=== PATIENT | male | born 1955 | race Caucasian/White ===

== ENCOUNTER 2025-03-09 12:33 | Inpatient (IN) ==
[2025-03-09] MEDS ORDERED: IOPAMIDOL 100 ML BOTTLE IV ONE (12:34)
[2025-03-09 13:44] LABS: Basophils # (Auto) 0.05 K/mcL (0.00-0.30); Basophils % (Auto) 0.5 % (0.0-2.0); Eosinophils # (Auto) 0.07 K/mcL (0.00-0.70); Eosinophils % (Auto) 0.7 % (0.0-7.0); Hematocrit 46.5 % (40.1-51.0); Hemoglobin 15.8 g/dL (13.7-17.5); Lymphocytes # (Auto) 1.28 K/mcL (1.50-4.80); Lymphocytes % (Auto) 12.4 % (15.5-49.0); Mean Corpuscular HGB Conc 34.0 g/dL (31.0-36.0); Monocytes # (Auto) 0.80 K/mcL (0.10-0.90); Monocytes % (Auto) 7.8 % (1.0-12.0); Neutrophils % (Auto) 78.5 % (38.0-78.0); Platelet Count 222 K/mcL (140-440); RBC 5.11 M/mcL (4.63-6.08); WBC 10.3 K/mcL (4.5-11.0)
[2025-03-09 14:22] LABS: ALT/SGPT 142 U/L (<40); AST/SGOT 133 U/L (<40); Albumin 4.5 gm/dL (3.2-5.2); Albumin/Globulin Ratio 1.6 (1.0-2.3); Alkaline Phosphatase 245 U/L (39-117); Anion Gap 12.0 (8.0-16.0); Bilirubin,Total 2.4 mg/dL (0.1-1.0); Blood Urea Nitrogen 12 mg/dL (8-23); Calcium 10.0 mg/dL (8.6-10.4); Carbon Dioxide 32 mmol/L (22-30); Chloride 97 mmol/L (96-108); Globulin 2.8 gm/dL (2.2-3.7); Glucose 134 mg/dL (70-105); Potassium 3.2 mmol/L (3.3-5.1); Sodium 141 mmol/L (133-145)
[2025-03-09] MEDS: ONDANSETRON 4 MG/2 ML VIAL IV ONE (15:04)
[2025-03-09] MEDS ORDERED: ONDANSETRON 4 MG/2 ML VIAL IV PRN (15:17)
[2025-03-09] MEDS ORDERED: HYDROmorphone 0.5 MG/0.5 ML SYRINGE IV PRN (15:17)
[2025-03-09] MEDS: 0.9 % SODIUM CHLORIDE 1,000 ML IV SCH ×2 (16:06→19:39)
[2025-03-09] MEDS ORDERED: ONDANSETRON 4 MG ODT TABLET SL PRN (17:23)
[2025-03-09] MEDS ORDERED: ALBUTEROL SULFATE 2.5 MG/3 ML NEBULIZER NEB PRN (17:23)
[2025-03-09] MEDS: PIPERACILLIN SODIUM/TAZOBACTAM 4.5 GM in DEXTROSE 5% IN WATER 50 ML IV ONE (19:40)
[2025-03-09] MEDS: ONDANSETRON 4 MG/2 ML VIAL ONE (19:40)
[2025-03-09 20:14] LABS: Bilirubin,Urine Negative (Negative); Color,Urine Yellow; Glucose,Urine (UA) Negative (Negative); Ketones,Urine Negative (Negative); Leukocyte Esterase,Urine Negative /uL (Negative); PH,Urine 7.0 (5.0-9.0); Protein,Urine Negative (Negative); Specific Gravity,Urine 1.020 (1.000-1.035); Urobilinogen,Urine Normal
[2025-03-09] MEDS: 0.9 % SODIUM CHLORIDE 10 ML SYRINGE IV SCH (21:23)
[2025-03-09] MEDS: SENNOSIDES 1 TABLET PO SCH (21:26)
[2025-03-09] MEDS: DOCUSATE SODIUM 100 MG CAPSULE PO SCH (21:26)
[2025-03-10] MEDS: PIPERACILLIN SODIUM/TAZOBACTAM 4.5 GM in DEXTROSE 5% IN WATER 100 ML IV SCH (00:41)
[2025-03-10 07:02] LABS: Basophils # (Auto) 0.05 K/mcL (0.00-0.30); Basophils % (Auto) 0.4 % (0.0-2.0); Eosinophils # (Auto) 0.07 K/mcL (0.00-0.70); Eosinophils % (Auto) 0.6 % (0.0-7.0); Hematocrit 41.7 % (40.1-51.0); Hemoglobin 14.3 g/dL (13.7-17.5); Lymphocytes # (Auto) 1.13 K/mcL (1.50-4.80); Lymphocytes % (Auto) 9.6 % (15.5-49.0); Mean Corpuscular HGB Conc 34.3 g/dL (31.0-36.0); Monocytes # (Auto) 1.08 K/mcL (0.10-0.90); Monocytes % (Auto) 9.2 % (1.0-12.0); Neutrophils % (Auto) 80.0 % (38.0-78.0); Platelet Count 213 K/mcL (140-440); RBC 4.62 M/mcL (4.63-6.08); WBC 11.8 K/mcL (4.5-11.0)
[2025-03-10 08:15] LABS: ALT/SGPT 187 U/L (<40); AST/SGOT 130 U/L (<40); Albumin 3.9 gm/dL (3.2-5.2); Albumin/Globulin Ratio 1.7 (1.0-2.3); Alkaline Phosphatase 226 U/L (39-117); Anion Gap 16.0 (8.0-16.0); Bilirubin,Total 6.3 mg/dL (0.1-1.0); Blood Urea Nitrogen 14 mg/dL (8-23); Calcium 9.2 mg/dL (8.6-10.4); Carbon Dioxide 29 mmol/L (22-30); Chloride 90 mmol/L (96-108); Globulin 2.3 gm/dL (2.2-3.7); Glucose 149 mg/dL (70-105); Potassium 2.4 mmol/L (3.3-5.1); Sodium 135 mmol/L (133-145)
[2025-03-10] MEDS: POTASSIUM CHLORIDE 20 MEQ TABLET PO ONE (10:13)
[2025-03-10] MEDS: VITAMIN D3 25 MCG TABLET PO SCH (11:54)
[2025-03-10] MEDS: TAMSULOSIN 0.4 MG CAPSULE PO SCH (11:54)
[2025-03-10] MEDS: GABAPENTIN 300 MG CAPSULE PO SCH (11:55)
[2025-03-10] MEDS: BUMETANIDE 1 MG TABLET PO SCH (11:55)
[2025-03-10] MEDS: METOPROLOL SUCCINATE 25 MG TAB.XL.24H PO SCH (12:08)
[2025-03-11 06:47] LABS: Basophils # (Auto) 0.07 K/mcL (0.00-0.30); Basophils % (Auto) 0.7 % (0.0-2.0); Eosinophils # (Auto) 0.15 K/mcL (0.00-0.70); Eosinophils % (Auto) 1.6 % (0.0-7.0); Hematocrit 42.6 % (40.1-51.0); Hemoglobin 14.7 g/dL (13.7-17.5); Lymphocytes # (Auto) 1.59 K/mcL (1.50-4.80); Lymphocytes % (Auto) 16.8 % (15.5-49.0); Mean Corpuscular HGB Conc 34.5 g/dL (31.0-36.0); Monocytes # (Auto) 1.09 K/mcL (0.10-0.90); Monocytes % (Auto) 11.5 % (1.0-12.0); Neutrophils % (Auto) 69.2 % (38.0-78.0); Platelet Count 205 K/mcL (140-440); RBC 4.70 M/mcL (4.63-6.08); WBC 9.4 K/mcL (4.5-11.0)
[2025-03-11] MEDS ORDERED: fentaNYL 100 MCG/2 ML VIAL ONE (06:54)
[2025-03-11] MEDS ORDERED: PROPOFOL 200 MG/20 ML VIAL IV ONE (06:54)
[2025-03-11] MEDS ORDERED: SUCCINYLCHOLINE 200 MG/10 ML VIAL IV ONE (06:57)
[2025-03-11] MEDS ORDERED: ONDANSETRON 4 MG/2 ML VIAL ONE (06:57)
[2025-03-11] MEDS ORDERED: FAMOTIDINE/PF 20 MG/2 ML VIAL IV ONE (06:57)
[2025-03-11] MEDS ORDERED: LIDOCAINE 2% PF 5 ML VIAL ONE (06:57)
[2025-03-11] MEDS ORDERED: GLYCOPYRROLATE 0.2 MG/ML VIAL IV ONE (06:57)
[2025-03-11] MEDS ORDERED: DEXAMETHASONE 10 MG/ML VIAL ONE (06:57)
[2025-03-11] MEDS ORDERED: MAGNESIUM SULFATE 2 GM/50 ML BAG IV ONE (06:57)
[2025-03-11] MEDS ORDERED: ROCURONIUM 10 MG/ML ML IV ONE ×2 (06:57→10:50)
[2025-03-11 07:46] LABS: ALT/SGPT 147 U/L (<40); AST/SGOT 86 U/L (<40); Albumin 3.9 gm/dL (3.2-5.2); Albumin/Globulin Ratio 1.4 (1.0-2.3); Alkaline Phosphatase 209 U/L (39-117); Anion Gap 14.0 (8.0-16.0); Bilirubin,Total 2.8 mg/dL (0.1-1.0); Blood Urea Nitrogen 14 mg/dL (8-23); Calcium 9.0 mg/dL (8.6-10.4); Carbon Dioxide 34 mmol/L (22-30); Chloride 89 mmol/L (96-108); Globulin 2.8 gm/dL (2.2-3.7); Glucose 108 mg/dL (70-105); Potassium 2.5 mmol/L (3.3-5.1); Sodium 137 mmol/L (133-145)
[2025-03-11] MEDS: POTASSIUM CHLORIDE 20 MEQ TABLET PO SCH (08:33)
[2025-03-11] MEDS: POTASSIUM CHLORIDE 10 MEQ/100 ML BAG IV SCH (08:33)
[2025-03-11] MEDS: ONDANSETRON 4 MG/2 ML VIAL IV PRN (08:37)
[2025-03-11] MEDS ORDERED: SUGAMMADEX SODIUM 200 MG/2 ML VIAL IV ONE ×2 (09:50→10:59)
[2025-03-11] MEDS ORDERED: HYDROmorphone 0.5 MG/0.5 ML SYRINGE ONE (09:50)
[2025-03-11] MEDS ORDERED: BENZOCAINE/MENTHOL 1 LOZENGE PO PRN (12:37)
[2025-03-11] MEDS ORDERED: LACTATED RINGERS 250 ML IV PRN (12:37)
[2025-03-11] MEDS ORDERED: fentaNYL 100 MCG/2 ML VIAL IV PRN (12:37)
[2025-03-11] MEDS ORDERED: IPRATROPIUM/ALBUTEROL 3 ML AMPUL.NEB NEB PRN (12:37)
[2025-03-11] MEDS ORDERED: NALOXONE HCL 0.4 MG/ML VIAL IV PRN (12:37)
[2025-03-11] MEDS ORDERED: HYDROmorphone 0.5 MG/0.5 ML SYRINGE IV PRN (12:37)
[2025-03-11] MEDS ORDERED: ONDANSETRON 4 MG/2 ML VIAL IV PRN (12:37)
[2025-03-11] MEDS ORDERED: METHOCARBAMOL 1,000 MG/10 ML VIAL IV PRN (12:37)
[2025-03-11] MEDS: LACTATED RINGERS 1,000 ML IV SCH (12:49)
[2025-03-11] MEDS: HYDROcodone/APAP 10/325MG TABLET PO PRN (14:26)
[2025-03-12 06:18] LABS: Basophils # (Auto) 0.03 K/mcL (0.00-0.30); Basophils % (Auto) 0.2 % (0.0-2.0); Eosinophils # (Auto) 0.01 K/mcL (0.00-0.70); Eosinophils % (Auto) 0.1 % (0.0-7.0); Hematocrit 42.0 % (40.1-51.0); Hemoglobin 14.3 g/dL (13.7-17.5); Lymphocytes # (Auto) 1.12 K/mcL (1.50-4.80); Lymphocytes % (Auto) 8.0 % (15.5-49.0); Mean Corpuscular HGB Conc 34.0 g/dL (31.0-36.0); Monocytes # (Auto) 1.29 K/mcL (0.10-0.90); Monocytes % (Auto) 9.2 % (1.0-12.0); Neutrophils % (Auto) 82.3 % (38.0-78.0); Platelet Count 233 K/mcL (140-440); RBC 4.63 M/mcL (4.63-6.08); WBC 14.1 K/mcL (4.5-11.0)
[2025-03-12 06:48] LABS: ALT/SGPT 144 U/L (<40); AST/SGOT 98 U/L (<40); Albumin 3.9 gm/dL (3.2-5.2); Albumin/Globulin Ratio 1.3 (1.0-2.3); Alkaline Phosphatase 211 U/L (39-117); Anion Gap 11.0 (8.0-16.0); Bilirubin,Total 4.3 mg/dL (0.1-1.0); Blood Urea Nitrogen 12 mg/dL (8-23); Calcium 9.0 mg/dL (8.6-10.4); Carbon Dioxide 34 mmol/L (22-30); Chloride 92 mmol/L (96-108); Globulin 2.9 gm/dL (2.2-3.7); Glucose 104 mg/dL (70-105); Potassium 2.9 mmol/L (3.3-5.1); Sodium 137 mmol/L (133-145)
[2025-03-12 12:03] VITALS: TEMP 97; O2SAT 93
== END 2025-03-12 12:43 | disposition short-term general hospital (02) | DRG 418 ==
LOC: MEDSUR 12:33 → ED 12:33 → MEDSUR 15:47
PROVIDERS: ADMIT Surgery; ATTEND Surgery